=== PATIENT | female | born 1990 | race Caucasian/White ===

== ENCOUNTER 2016-10-22 07:19 | Emergency (ER) | payer MEDICAID ==
[~2016-10-22] VITALS: Ht 162.6 cm; Wt 81.6 kg
[2016-10-22 07:28] VITALS: BP 112/64; PULSE 89; RESP 16; TEMP 98.2; O2SAT 99
--- NOTE | 2016-10-22 07:31 | NUR ---
ambulated to bed 6
[2016-10-22] MEDS ORDERED: NACL 0.9% 1,000 ML IV ONE (07:37)
--- NOTE | 2016-10-22 07:38 | NUR ---
ER at bedside examining patient.
--- NOTE | 2016-10-22 07:40 | NUR ---
Pt presents to ED c/o nausea and generalized body aches.Pt reports worse on R flank x 2 days. Pt has no med hx.
[2016-10-22] MEDS ORDERED: KETOROLAC TROMETHAMINE 30 MG VIAL IVP ONE (07:45)
[2016-10-22] MEDS ORDERED: ONDANSETRON HCL 4 MG/2 ML VIAL IVP ONE (07:45)
--- NOTE | 2016-10-22 07:55 | NUR ---
# 20 gauge angiocath placed to RFA. Use of asceptic technique. Opsite placed over site. Blood return noted. Blood for lab drawn from site. Flushed with 10 cc of normal saline. No evidence of infiltration noted. Patient tolerated well.
[2016-10-22 08:22] LABS: BASOPHILS # (AUTO) 0.1 K/uL (0.0-0.2); BASOPHILS % (AUTO) 1.1 % (0.0-2.0); EOSINOPHILS % (AUTO) 0.2 % (0.0-4.0); HEMATOCRIT 38.6 % (36-48); HEMOGLOBIN 12.9 g/dL (12.0-16.0); LYMPHOCYTES # (AUTO) 1.5 K/uL (1.0-5.5); LYMPHOCYTES % (AUTO) 11.7 % (20.5-51.5); MEAN CORPUSCULAR HEMOGLOBIN 29 pg (27-31); MEAN CORPUSCULAR HGB CONC 34 % (32-36); MEAN CORPUSCULAR VOLUME 88 fL (79.0-98.0); MONOCYTES # (AUTO) 1.2 K/uL (0.0-1.0); NEUTROPHILS # (AUTO) 10.1 K/uL (1.8-7.7); PLATELET COUNT (AUTO) 168 K/uL (130-430); RED CELL DISTRIBUTION WIDTH 12.1 % (9.0-15.0); WHITE BLOOD COUNT (AUTO) 12.9 K/uL (4.8-10.8)
--- NOTE | 2016-10-22 08:22 | NUR ---
Pt tolerated medication well.
[2016-10-22 08:25] LABS: CALCIUM 8.8 mg/dL (8.4-11.0); CREATININE 0.93 mg/dL (0.55-1.30); POTASSIUM 3.6 mmol/L (3.5-5.1)
--- NOTE | 2016-10-22 08:25 | NUR ---
Pt reports pain and nausea resolving.
[2016-10-22 08:30] LABS: ALBUMIN 3.9 g/dL (3.4-4.8); TOTAL BILIRUBIN 1.1 mg/dL (0.0-1.0); TOTAL PROTEIN, SERUM 7.7 g/dL (6.4-8.3)
--- NOTE | 2016-10-22 08:30 | NUR ---
Patient transported to radiology via gurney, accompanied by rad staff.
[2016-10-22 08:40] LABS: BILIRUBIN,URINE NEGATIVE (NEGATIVE); BLOOD, URINE 3+ (NEGATIVE); CLARITY/URINE CLOUDY (CLEAR); COLOR,URINE YELLOW (YELLOW); GLUCOSE,URINE NEGATIVE (NEGATIVE); KETONES,URINE NEGATIVE (NEGATIVE); LEUKOCYTE ESTERASE ,URINE 2+ (NEGATIVE); NITRITE, URINE NEGATIVE (NEGATIVE); PH,URINE 7.5 (5.0-8.0); PROTEIN URINE TRACE (NEGATIVE)
--- NOTE | 2016-10-22 08:40 | NUR ---
Pt returned from CT scan tolerated well.
[2016-10-22 08:44] LABS: BACTERIA,URINE MANY /HPF (None Seen); WBC,URINE 20-50 /HPF (0-3)
[2016-10-22 08:45] LABS: MUCUS,URINE None Seen /LPF (None Seen)
[2016-10-22] MEDS ORDERED: cefTRIAXone 1 GM IVPB PREMIX 50 ML IV ONE (08:45)
--- NOTE | 2016-10-22 09:30 | NUR ---
Pt receiving medication for UTI. Pt tolerating well.
[2016-10-22 10:28] VITALS: BP 118/66; PULSE 84; RESP 16; TEMP 98; O2SAT 99
--- NOTE | 2016-10-22 10:28 | NUR ---
Patient given written and verbal discharge instructions and verbalizes understanding. ER MD discussed with patient the results and treatment provided. Given copies of tests performed in ER. Patient in stable condition. ID arm band removed. IV catheter removed intact and dressing applied, no active bleeding. Rx of macrobid and zofran given. Patient educated on pain management and to follow up with PMD. Pain Scale 0. Opportunity for questions provided and answered.
--- NOTE | 2016-10-24 11:04 | NUR ---
Pt called to inform of urine results.
== END 2016-10-22 10:28 | disposition home or self-care (01) ==
LOC: SED 07:19
DX: N39.0 Urinary tract infection, site not specified (principal); R31.9 Hematuria, unspecified
CPT/HCPCS: 36415; 74176; 80053; 81000; 81025; 82150; 83605; 83690; 85025; 87040; 87086; 87186; 96361; 96365; 96375; 99285; J0696; J1885; J2405; J7030

== ENCOUNTER 2016-12-12 12:23 | Emergency (ER) | payer MEDICAID ==
[~2016-12-12] VITALS: Ht 162.6 cm; Wt 81.6 kg
[2016-12-12 12:28] VITALS: BP_SYST 114
[2016-12-12] MEDS ORDERED: CEFAZOLIN 2 GM IVPB PREMIX 50 ML IV ONE (13:00)
[2016-12-12] MEDS ORDERED: KETOROLAC TROMETHAMINE 30 MG VIAL IVP ONE (13:00)
[2016-12-12 13:20] VITALS: BP_SYST 107
== END 2016-12-12 14:30 | disposition home or self-care (01) ==
LOC: SED 12:23
DX: J02.9 Acute pharyngitis, unspecified (principal); H92.01 Otalgia, right ear
CPT/HCPCS: 96365; 96375; 99284; J0690; J1885

== ENCOUNTER 2021-05-02 00:16 | Emergency (ER) | payer MEDICAID, OTHER, SELFPAY ==
[~2021-05-02] VITALS: Ht 165.1 cm; Wt 77.1 kg
[2021-05-02 00:16] VITALS: BP_SYST 115
[2021-05-02] MEDS ORDERED: NACL 0.9% 1,000 ML IV ONE (02:00)
[2021-05-02] MEDS ORDERED: cefTRIAXone 1 GM IVPB PREMIX 50 ML IV ONE (02:00)
[2021-05-02] MEDS ORDERED: CLINDAMYCIN 900 MG in D5W 100 ML IV ONE (02:00)
[2021-05-02] MEDS ORDERED: DEXAMETHASONE SOD PHOSPHATE 10 MG/ML VIAL IVP ONE (02:00)
[2021-05-02] MEDS ORDERED: KETOROLAC TROMETHAMINE 30 MG VIAL IVP ONE (02:00)
[2021-05-02] MEDS ORDERED: CLINDAMYCIN 900 mg/50mL D5W 50 ML IV ONE (02:21)
[2021-05-02 02:28] LABS: BASOPHILS # (AUTO) 0.1 K/uL (0.0-0.2); BASOPHILS % (AUTO) 0.4 % (0.0-2.0); EOSINOPHILS % (AUTO) 0.1 % (0.0-4.0); HEMATOCRIT 38.6 % (36-48); HEMOGLOBIN 13.3 g/dL (12.0-16.0); LYMPHOCYTES # (AUTO) 1.7 K/uL (1.0-5.5); LYMPHOCYTES % (AUTO) 11.3 % (20.5-51.5); MEAN CORPUSCULAR HEMOGLOBIN 31 pg (27-31); MEAN CORPUSCULAR HGB CONC 35 % (32-36); MEAN CORPUSCULAR VOLUME 91 fL (79.0-98.0); MONOCYTES # (AUTO) 1.1 K/uL (0.0-1.0); MONOCYTES % (AUTO) 7.1 % (1.7-9.3); NEUTROPHILS # (AUTO) 12.1 K/uL (1.8-7.7); NEUTROPHILS % (AUTO) 81.1 % (40.0-70.0); PLATELET COUNT (AUTO) 184 K/uL (130-430); RED BLOOD CELL COUNT(AUTO) 4.26 MIL/uL (4.2-6.2); RED CELL DISTRIBUTION WIDTH 12.2 % (9.0-15.0)
[2021-05-02 02:44] LABS: CALCIUM 8.8 mg/dL (8.4-11.0); CREATININE 0.77 mg/dL (0.55-1.30); POTASSIUM 3.4 mmol/L (3.5-5.1)
[2021-05-02 05:15] VITALS: BP_SYST 115
== END 2021-05-02 05:15 | disposition home or self-care (01) ==
LOC: SED 00:16
DX: J03.90 Acute tonsillitis, unspecified (principal); Z20.822 Contact with and (suspected) exposure to COVID-19
CPT/HCPCS: 36415; 80048; 85025; 86308; 87040; 87426; 96365; 96368; 96375; 99284; J0696; J1100; J1885; J3490